=== PATIENT | male | born 1985 | race Caucasian/White ===

== ENCOUNTER 2017-01-15 15:53 | Emergency (ER) | payer OTHER ==
[2017-01-15 16:04] VITALS: BP 125/74
[2017-01-15] MEDS ORDERED: ORPHENADRINE CITRATE 30 MG/ML VIAL IM ONE (16:35)
[2017-01-15] MEDS ORDERED: KETOROLAC TROMETHAMINE 60 MG/2 ML VIAL IM ONE ×2 (16:35→16:41)
[2017-01-15] MEDS ORDERED: ORPHENADRINE CITRATE 30 MG/ML VIAL ONE (16:41)
--- NOTE | 2017-01-15 16:48 | ERNOTE ---
Back Pain ER HPI Date of Service: 01/15/17 Presenting Symptoms: injury/pain to back Time Seen by Provider: 01/15/17 16:20 Source: patient, RN notes reviewed, past records Exam Limitations: no limitations Immunizations: IMMUNIZATION HX Immunizations Up to Date Yes History of Influenza Vaccine No Hx Pneumococcal Vaccination No Allergies/Adverse Reactions: Allergies No Known Allergies Allergy (Verified 01/15/17 16:05) Home Medications: HOME MEDICATIONS Cyclobenzaprine HCl [Flexeril] 10 mg PO TID PRN #30 tab 01/15/17 [Last Taken Unknown] Ibuprofen [Motrin] 600 mg PO Q6H PRN #40 tab 01/15/17 [Last Taken Unknown] Narrative: 32 y/o male with low back pain presents to the ER. His back has been bothering him for over a year. He saw Dr. Torres about this in December of last year. An xray was done that showed no acute findings. He has had no injury since, but he works laying floor tile. His pain has been worse for the past few days. He occasionally takes ibuprofen. He reports that he was supposed to see a back specialist but did not for some reason. Timing: Reports: getting worse Quality/Severity: Reports: severe, aching Location of pain: Reports: lower back, radiating to lf thigh/leg Recent Injury?: Reports: no Possible Precipitating Factor: Reports: none Associated Symptoms: Denies: sweating, constipation/incontinence, nausea/ vomiting, problems urinating, difficulty walking, lightheadedness, numbess/ weakness in legs Prior Treament: Reports: similar symptoms before. Denies: recently seen Review of Systems - Review of Systems Constitutional: Absent: recent illness, fever, chills EYE: Present: no symptoms reported ENT: Present: no symptoms reported Respiratory: Present: no symptoms reported Cardiology: Present: no symptoms reported Gastrointestinal/Abdominal: Present: no symptoms reported Genitourinary: Absent: frequency, dysuria, hematuria Musculoskeletal: Present: back pain. Absent: neck pain, joint pain, joint swelling Skin: Absent: lesions, lumps, change in color Neurological: Absent: weakness, numbness, tingling Endocrine: Present: no symptoms reported Hematologic/Lymphatic: Present: no symptoms reported Psych: Present: no symptoms reported - Patient's Past Medical History Patient History - Medical: No pertinent hx Patient History - Cardiac/Respiratory: No pertinent hx Patient History - Cancer: No Hx of Cancer Patient History - Surgical Procedures: No surgical history Patient History - Other: None - Family History Grandfather-Maternal Family History - Medical: Diabetes Type 2 - Social History Living Situations: home Psych History: No pertinent hx Smoking Status: Current every day smoker Alcohol Use: heavy Drug Use: marijuana, meth, other - Immunizations Immunizations Up to Date: Yes Hx Pneumococcal Vaccination: No History of Influenza Vaccine: No Physical Exam - Physical Exam General Appearance: Present: wd/wn, alert, mild distress, other - Dirty appearance, appears older than stated age Head Exam: Present: normal inspection Neck: Present: normal inspection, nontender, supple, full range of motion Respiratory: Present: no respiratory distress, normal breath sounds, no accessory muscle use, lungs clear Cardiovascular/Chest: Present: regular rate, rhythm, no murmur, normal peripheral pulses Back Exam: Present: no CVA tenderness, vertebral tenderness - Lumbar, decreased range of motion. Absent: muscle spasm Extremity Exam: Present: normal inspection, normal range of motion Neurological Exam: Present: alert, oriented, normal mood/affect, no motor/ sensory deficits, other - Normal strength against resistance in lower extremities DTR: N=norm/NB=norm/brisk/A=abs/DD=dull/dimin/HC=hyperactive: Knee (R): Normal, Knee (L): Normal Skin Exam: Present: normal color, warm/dry ED Progress - Vital Signs Patient's Vital Signs:: I have reviewed the patient's vital signs. Vital Signs: Vital Signs 01/15/17 16:00 Temperature 37.4 C Pulse Rate 82 Respiratory 16 Rate Blood Pressure 125/74 O2 Sat by Pulse 96 Oximetry - Progress/Reassessment Chief Complaint: Back Pain Progress:: Unchanged Departure Clinical Impression: Low back pain Qualifiers: Chronicity: chronic Back pain laterality: midline Sciatica presence: with sciatica Sciatica laterality: sciatica of left side Qualified Code(s): M54.42 - Lumbago with sciatica, left side; G89.29 - Other chronic pain - Departure Disposition: Home Follow Up Needed Condition: Stable Instructions: Back Pain, Adult, [id number] Additional Instructions: Contact Dr. Pepe for follow-up - you may need a referral, contact Dr. Torres if needed Referrals: Luz Maria Torres DO [Primary Care Provider] - Prescriptions: Cyclobenzaprine HCl [Flexeril] 10 mg PO TID PRN #30 tab PRN Reason: MUSCLE SPASMS Ibuprofen [Motrin] 600 mg PO Q6H PRN #40 tab PRN Reason: Pain
== END 2017-01-15 16:52 | disposition home or self-care (01) ==
LOC: ER 15:53
DX: M54.42 Lumbago with sciatica, left side (principal); G89.29 Other chronic pain; F17.200 Nicotine dependence, unspecified, uncomplicated